=== PATIENT | male | born 2000 | race African-American/Black ===

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

== ENCOUNTER 2018-08-14 01:15 | Emergency (ER) | payer MEDICAID ==
[~2018-08-14] VITALS: Ht 185.4 cm; Wt 74.0 kg
[2018-08-14] MEDS ORDERED: ALBUTEROL (0.083%) 2.5MG/3ML NEB HHN STA (02:48)
[2018-08-14] MEDS ORDERED: PREDNISONE 20MG TABLET PO STA (02:48)
[2018-08-14] MEDS ORDERED: IPRATROPIUM BROMIDE (0.02%) 0.5MG/2.5ML NEB HHN STA (02:48)
[2018-08-14 05:40] VITALS: BP 118/62
== END 2018-08-14 05:48 | disposition home or self-care (01) ==
LOC: ER 04:54
DX: J45.901 Unspecified asthma with (acute) exacerbation (principal); R03.0 Elevated blood-pressure reading, without diagnosis of hypertension
CPT/HCPCS: 71045; 93005; 94644; 99285; J7512; J7611